=== PATIENT | female | born 1930 | race Caucasian/White ===

== ENCOUNTER 2020-05-14 18:23 | Observation (INO) ==
[2020-05-14] MEDS ORDERED: ASPIRIN 325 MG TABLET PO STA (18:46)
[2020-05-14] MEDS ORDERED: METOPROLOL TARTRATE 5 MG/5 ML VIAL IV STA ×2 (18:46→19:57)
[2020-05-14 19:01] LABS: Basophils # 0.1 10*3/uL (0.0-0.2); Basophils % 0.8 % (0.0-0.8); Eosinophils # 0.3 10*3/uL (0.0-0.87); Hematocrit 42.1 VOL% (35.7-47.0); Hemoglobin 13.3 GM/DL (12.0-16.0); Immature Granulocytes % 0.3 %; Immature Granulocytes Absolute 0.03 #; Lymphocytes # 4.1 10*3/uL (1.4-4.0); Lymphocytes % 46.9 % (21.3-54.2); Mean Corpuscular HGB Conc 31.6 GM/DL (32-36); Mean Corpuscular Volume 100.7 FL (87-102); Mean Platelet Volume 10.5 FL (9.6-12.0); Monocytes % 8.4 % (1.7-12.7); Neutrophils % 40.6 % (38.7-73.9); Platelet Count 258 T/CUMM (130-400); Red Blood Count 4.18 MC/CUMM (3.8-5.5); Red Cell Distribution Width 14.8 % (9.3-17.3); White Blood Count 8.6 T/CUMM (4-12)
[2020-05-14 19:01] LABS: Apearance,Urine CLOUDY (Clear); Bilirubin,Urine Negative (Negative); Blood, Urine Negative (Negative); Glucose,Urine (UA) >=500 mg/dL (Negative); Ketones,Urine 5 mg/dL (Negative); Mucus,Urine Occasional /LPF (Occasional); Nitrite,Urine Negative (Negative); Protein,Urine 30 MG/DL; RBC,Urine 9 /HPF (0-4); Urine Color Amber (Yellow); Urine Specific Gravity 1.013 (1.001-1.035); Urine Urobilinogen < 2.0 EU/DL (0.2-1.0); WBC,Urine 1764 /HPF (0-6)
[2020-05-14] MEDS ORDERED: cefTRIAXone 1,000 MG in SODIUM CHLORIDE 0.9% 100 ML IV STA (19:24)
[2020-05-14 19:25] LABS: Band Neutrophils 1 % (0-10); Eosinophils 6 % (0-10); Lymphocytes 47 % (20-55); Macrocytosis Slight; Platelet Estimate Normal; Segmented Neutrophils 41 % (50-85); Total Cells Counted 100
[2020-05-14 19:33] LABS: Albumin 3.5 G/DL (3.4-5.0); Bilirubin,Total 0.6 MG/DL (0.2-1.0); Calcium 9.4 MG/DL (8.5-10.1); Osmolality,Calculated 280.4 MOS/KG (273-304); Thyroid Stimulating Hormone 0.974 uIU/ml (0.358-3.74); Total Protein 7.7 G/DL (6.4-8.3)
[2020-05-14] MEDS ORDERED: ENOXAPARIN 100 MG/ML SYRINGE SUBCUT STA (19:56)
[2020-05-14] MEDS ORDERED: ENOXAPARIN 80 MG/0.8 ML SYRINGE SUBCUT ONE (20:01)
[2020-05-14] MEDS ORDERED: DILTIAZEM 25 MG/5 ML VIAL IV ONE (20:30)
[2020-05-14] MEDS ORDERED: DILTIAZEM 50 MG/10 ML VIAL IV STA (20:31)
[2020-05-14] MEDS ORDERED: DEXTROSE 50% 25 GM/50 ML VIAL IV PRN (20:41)
[2020-05-14] MEDS ORDERED: ACETAMINOPHEN 325 MG TABLET PO PRN (20:41)
[2020-05-14] MEDS ORDERED: GLUCAGON 1 MG VIAL IM PRN (20:41)
[2020-05-14] MEDS ORDERED: NICOTINE 21 MG/24 HR PATCH TRANSDERM PRN (20:41)
[2020-05-14] MEDS ORDERED: hydrALAZINE 20 MG/1 ML VIAL IV PRN (20:41)
[2020-05-14] MEDS ORDERED: ONDANSETRON 4 MG/2 ML VIAL IV PRN (20:41)
[2020-05-14] MEDS ORDERED: diphenhydrAMINE CAP 25 MG CAPSULE PO PRN (20:41)
[2020-05-14] MEDS ORDERED: guaiFENesin/DM ER 600-30 MG TABLET PO PRN (20:41)
[2020-05-14] MEDS ORDERED: SODIUM CHLORIDE 0.9% 1,000 ML IV SCH (21:00)
[2020-05-14 21:17] LABS: Risk Ratio 3.25; VLDL CHOLESTEROL 16.8 MG/DL
[2020-05-15 06:57] LABS: Albumin 2.7 G/DL (3.4-5.0); Bilirubin,Total 0.4 MG/DL (0.2-1.0); Calcium 8.7 MG/DL (8.5-10.1)
[2020-05-15] MEDS ORDERED: ENOXAPARIN 80 MG/0.8 ML SYRINGE SUBCUT SCH (07:00)
[2020-05-15] MEDS: atenoloL 25 MG TABLET PO SCH (08:42)
[2020-05-15] MEDS: MULTIVITAMIN (CENTRUM) TABLET PO SCH (08:42)
[2020-05-15] MEDS: MEMANTINE 10 MG TABLET PO SCH ×2 (08:43→21:17)
[2020-05-15] MEDS: CITALOPRAM 20 MG TABLET PO SCH (08:43)
[2020-05-15] MEDS ORDERED: ASPIRIN 325 MG TABLET PO SCH (09:00)
[2020-05-15] MEDS ORDERED: POTASSIUM CHLORIDE 20 MEQ TABLET PO ONE (10:58)
[2020-05-15] MEDS: APIXABAN 2.5 MG TABLET PO SCH ×2 (11:26→21:17)
[2020-05-15] MEDS ORDERED: cefTRIAXone 1,000 MG in SYRINGE 1 EACH IV SCH (20:00)
[2020-05-15] MEDS ORDERED: DONEPEZIL 5 MG TABLET PO SCH (21:00)
[2020-05-15] MEDS ORDERED: QUEtiapine 25 MG TABLET PO SCH (21:00)
[2020-05-16 06:00] LABS: Basophils % 0.6 % (0.0-0.8); Eosinophils # 0.2 10*3/uL (0.0-0.87); Eosinophils % 2.7 % (0.00-10.9); Hematocrit 32.9 VOL% (35.7-47.0); Hemoglobin 10.5 GM/DL (12.0-16.0); Immature Granulocytes % 0.3 %; Immature Granulocytes Absolute 0.02 #; Lymphocytes % 44.4 % (21.3-54.2); Mean Corpuscular HGB Conc 31.9 GM/DL (32-36); Mean Corpuscular Volume 99.1 FL (87-102); Mean Platelet Volume 11.3 FL (9.6-12.0); Platelet Count 189 T/CUMM (130-400); Red Blood Count 3.32 MC/CUMM (3.8-5.5); Red Cell Distribution Width 14.9 % (9.3-17.3); White Blood Count 6.7 T/CUMM (4-12)
[2020-05-16 06:23] LABS: Calcium 8.9 MG/DL (8.5-10.1); Osmolality,Calculated 279.4 MOS/KG (273-304)
[2020-05-16 07:37] VITALS: BP 158/103
[2020-05-16] MEDS: MEMANTINE 10 MG TABLET PO SCH (08:56)
[2020-05-16] MEDS: CITALOPRAM 20 MG TABLET PO SCH (08:56)
[2020-05-16] MEDS: MULTIVITAMIN (CENTRUM) TABLET PO SCH (08:56)
[2020-05-16] MEDS: APIXABAN 2.5 MG TABLET PO SCH (08:56)
[2020-05-16] MEDS: atenoloL 25 MG TABLET PO SCH (08:56)
== END 2020-05-16 12:45 | disposition home or self-care (01) ==
LOC: N.EDINP 18:23 → N.ED 18:23 → N.EDINP 22:03 → N.TELEN 22:14
PROVIDERS: ADMIT Internal Medicine; ATTEND Internal Medicine